=== PATIENT | male | born 2000 | race African-American/Black ===

== ENCOUNTER → 2019-01-21 | Outpatient (CLI) | payer BC, OTHER ==
--- NOTE | 2019-01-21 11:03 | Diagnostic Imaging Report ---
INDICATION: Knee pain COMPARISON: None available. TECHNIQUE: 3 radiographs of the left knee dated 01/21/2019. FINDINGS: No acute fracture or dislocation. No destructive osseous process. Joint spaces are well-maintained. No joint effusion. No suspicious radiopaque foreign body. IMPRESSION: Unremarkable examination without acute osseous abnormality. Dictated by: Dictated on workstation # [id number]
== END ==
LOC: RAD FS 10:16
PROVIDERS: ATTEND Nurse Practitioner
DX: M25.562 Pain in left knee (principal)
CPT/HCPCS: 73562